=== PATIENT | female | born 1945 ===

== ENCOUNTER 2023-09-28 11:15 | Inpatient (IN) | payer OTHER ==
[2023-09-28] MEDS ORDERED: METFORMIN HCL1000 M2 (13:16)
[2023-09-28] MEDS ORDERED: SIMVASTATIN5 MG (13:17)
[2023-09-28] MEDS ORDERED: TOUJEO (13:17)
[2023-09-28] MEDS ORDERED: ENALAPRIL MALEA10 MG (13:17)
[2023-09-28] MEDS ORDERED: TIROSINT13 MCG (13:18)
[2023-09-28] MEDS ORDERED: NASAL MIST126 ML (13:18)
[2023-10-04] MEDS ORDERED: CEFTRIAXONE SODIUM 2,000 MG VIAL ONE (13:36)
[2023-10-04] MEDS ORDERED: METRONIDAZOLE/SODIUM CHLORIDE 500 MG/100 ML PIGGYBACK IV ONE ×2 (13:36→17:15)
[2023-10-04] MEDS ORDERED: LIDOCAINE HCL 1%/EPINEPHRINE 20ML VIAL IJ ONE (16:49)
[2023-10-04] MEDS ORDERED: BUPIVACAINE HCL/MPF 0.5% 30ML VIAL ONE (16:49)
[2023-10-04] MEDS ORDERED: CEFTRIAXONE SODIUM 2,000 MG VIAL IV ONE (17:15)
[2023-10-04] MEDS ORDERED: ONDANSETRON HCL 2 MG/ML VIAL IV PRN (17:45)
[2023-10-04] MEDS ORDERED: 0.9 % SODIUM CHLORIDE 1,000 ML IV SCH (17:45)
[2023-10-04] MEDS ORDERED: MORPHINE SULFATE 4 MG/ML CARTRIDGE IV PRN (17:45)
[2023-10-04] MEDS ORDERED: OxyCODONE HCL 5 MG TABLET (ROXICODONE) PO PRN (17:45)
[2023-10-04] MEDS ORDERED: DEXTROSE 50 % IN WATER 0.5 G/ML DISP.SYRIN IV PRN ×2 (17:45→18:30)
[2023-10-04] MEDS ORDERED: ENALAPRILAT DIHYDRATE 1.25 MG/ML VIAL IV PRN (18:30)
[2023-10-04] MEDS ORDERED: INSULIN LISPRO 1,000 UNIT/10 ML UNITS SUBCUTANEO PRN (18:30)
[2023-10-04] MEDS ORDERED: ACETAMINOPHEN 500 MG GEL..CAP PO SCH (20:00)
[2023-10-04 20:35] LABS: HEMATOCRIT 36.9 % (36.0-45.00); HEMOGLOBIN 12.1 g/dL (12.0-15.00); MEAN CELL VOLUME 91.1 fL (80.00-100.00); MEAN CORPUSCULAR HGB CONC 32.9 g/dl (32.0-36.0); PLATELET COUNT 299 K/uL (150-450); RED BLOOD COUNT 4.05 M/uL (4.00-6.00); RED CELL DISTRIBUTION WIDTH 14.3 % (11.5-14.5)
[2023-10-04] MEDS ORDERED: FAMOTIDINE/PF 20 MG/2 ML VIAL ONE (20:40)
[2023-10-04] MEDS ORDERED: MORPHINE SULFATE 4 MG/ML VIAL IV ONE (20:45)
[2023-10-04 20:53] LABS: ALBUMIN 3.4 gm/dL (3.4-5.0); CALCIUM 8.7 mg/dL (8.5-10.1); CREATININE SERUM 0.71 mg/dL (0.55-1.02); GFR 79.61; MAGNESIUM 1.6 mg/dL (1.8-2.4); PHOSPHOROUS 3.4 mg/dL (2.5-4.9); POTASSIUM 3.89 mEq/L (3.5-5.1)
[2023-10-04] MEDS ORDERED: FAMOTIDINE/PF 20 MG/2 ML VIAL IV PUSH SCH (21:00)
[2023-10-04] MEDS ORDERED: ENALAPRIL MALEATE 5 MG TABLET PO SCH (21:00)
[2023-10-05] MEDS ORDERED: METRONIDAZOLE/SODIUM CHLORIDE 500 MG/100 ML PIGGYBACK IV ONE (00:27)
[2023-10-05] MEDS ORDERED: GABAPENTIN 300 MG CAPSULE PO ONE (00:27)
[2023-10-05] MEDS ORDERED: METRONIDAZOLE/SODIUM CHLORIDE 500 MG/100 ML PIGGYBACK IV SCH (01:00)
[2023-10-05] MEDS ORDERED: GABAPENTIN 300 MG CAPSULE PO SCH (01:00)
[2023-10-05 03:35] VITALS: BP 139/63; O2SAT 95
[2023-10-05] MEDS ORDERED: LEVOTHYROXINE SODIUM 25 MCG TABLET PO SCH (06:00)
[2023-10-05 06:42] LABS: HEMATOCRIT 33.2 % (36.0-45.00); HEMOGLOBIN 11.3 g/dL (12.0-15.00); MEAN CORPUSCULAR HEMOGLOBIN 30.3 pg (27.00-32.0); PLATELET COUNT 246 K/uL (150-450); RED BLOOD COUNT 3.74 M/uL (4.00-6.00); RED CELL DISTRIBUTION WIDTH 14.6 % (11.5-14.5)
[2023-10-05 07:13] LABS: ALBUMIN 3.1 gm/dL (3.4-5.0); CREATININE SERUM 0.64 mg/dL (0.55-1.02); GFR 89.74; MAGNESIUM 1.5 mg/dL (1.8-2.4); PHOSPHOROUS 3.5 mg/dL (2.5-4.9); POTASSIUM 3.71 mEq/L (3.5-5.1)
[2023-10-05] MEDS ORDERED: HYOSCYAMINE SULFATE 0.125 MG TAB.SUBL SL SCH (09:00)
[2023-10-05 09:55] VITALS: BP 150/87; O2SAT 98
[2023-10-05] MEDS ORDERED: MAGNESIUM SULFATE IN WATER 50 ML IV NR (10:30)
[2023-10-05 16:00] VITALS: BP 99/52; O2SAT 95
[2023-10-05] MEDS ORDERED: POLYETHYLENE GLYCOL 3350 17 GM BLIST.PACK PO SCH (17:00)
[2023-10-05] MEDS ORDERED: SIMVASTATIN 20 MG TABLET PO SCH (17:00)
[2023-10-06] VITALS: BP 120/51; O2SAT 97
[2023-10-06 07:55] LABS: HEMATOCRIT 33.8 % (36.0-45.00); HEMOGLOBIN 11.5 g/dL (12.0-15.00); MEAN CELL VOLUME 90.9 fL (80.00-100.00); MEAN CORPUSCULAR HEMOGLOBIN 31.1 pg (27.00-32.0); MEAN CORPUSCULAR HGB CONC 34.2 g/dl (32.0-36.0); PLATELET COUNT 247 K/uL (150-450); RED BLOOD COUNT 3.71 M/uL (4.00-6.00); RED CELL DISTRIBUTION WIDTH 14.5 % (11.5-14.5)
[2023-10-06 08:00] VITALS: BP 136/67; O2SAT 98
[2023-10-06] MEDS ORDERED: ENOXAPARIN SODIUM 40 MG/0.4 ML SYRINGE SUBCUTANEO SCH ×2 (09:00→17:00)
[2023-10-06 09:06] LABS: CALCIUM 8.2 mg/dL (8.5-10.1); CREATININE SERUM 0.61 mg/dL (0.55-1.02); GFR 94.86; POTASSIUM 3.81 mEq/L (3.5-5.1)
[2023-10-06 09:13] LABS: PHOSPHOROUS 1.6 mg/dL (2.5-4.9)
[2023-10-06] MEDS ORDERED: POTASSIUM PHOS,M-BASIC-D-BASIC 3 MM/ML VIAL IV NR (10:45)
[2023-10-06 16:50] VITALS: BP 125/58; O2SAT 97
[2023-10-07 01:23] VITALS: BP 143/67; O2SAT 96
[2023-10-07 07:55] VITALS: BP 184/65; O2SAT 98
[2023-10-07] MEDS ORDERED: HYOSCYAMINE0.125 M1 SL (08:41)
[2023-10-07] MEDS ORDERED: GABAPENTIN300 MG PO (08:42)
[2023-10-07] MEDS ORDERED: PEPCID AC20 MG PO (08:42)
[2023-10-07] MEDS ORDERED: TRAM1TAB98 PO (08:42)
== END 2023-10-07 11:45 | disposition home or self-care (01) | DRG 331 ==
LOC: SURH 10-04 08:53 → O/R 10-04 08:53 → SURH 10-04 11:15
PROVIDERS: Internal Medicine Geriatric Medicine; ADMIT Surgery; ATTEND Surgery
PROC: 07BB4ZZ Excision of Mesenteric Lymphatic, Percutaneous Endoscopic Approach (ICD-10-PCS; 2023-10-04)
PROC: 0DTF4ZZ Resection of Right Large Intestine, Percutaneous Endoscopic Approach (ICD-10-PCS; principal; 2023-10-04 19:15)
DX: K63.89 Other specified diseases of intestine (principal); E11.9 Type 2 diabetes mellitus without complications; Z79.4 Long term (current) use of insulin